=== PATIENT | male | born 1955 | race Caucasian/White ===

== ENCOUNTER 2023-01-18 01:45 | Day surgery (SDC) | payer MEDICARE, SELFPAY ==
[2023-01-15 15:34] VITALS: BMI 32.8
[2023-01-18 07:17] VITALS: BP 118/79; PULSE 65; RESP 14; TEMP 36.3; O2SAT 95; BMI 27.1
[2023-01-18 07:25] LABS: Basophils Percent Auto 0.7 % (0.2-1.2); Eosinophils Absolute Auto 0.3 K/mm3 (0-0.3); Eosinophils Percent Auto 5.4 % (0-4.4); Hematocrit 38.5 % (42.0-52.0); Hemoglobin 12.5 g/dL (14.0-18.0); Immature Granulocyte Absolute 0.01 K/mm3 (0.00-0.031); Immature Granulocyte Percent A 0.2 % (0-0.5); Lymphocytes Percent Auto 25.4 % (18.3-44.2); Mean Corpuscular HGB Conc 32.5 g/dl (32-36); Mean Corpuscular Hemoglobin 31.5 pg (26-34); Mean Platelet Volume 10.7 fl (7.4-10.4); Monocytes Absolute Auto 0.7 K/mm3 (0.1-0.6); Monocytes Percent Auto 11.8 % (2.6-8.5); Neutrophils Absolute Auto 3.1 K/mm3 (1.3-6.7); Neutrophils Percent Auto 56.5 % (45.5-73.1); Platelet Count Result 230 k/mm3 (150-375); Red Blood Count 3.97 M/mm3 (4.6-6.20); Red Cell Distribution Width 12.6 % (11.5-14.5); White Blood Count 5.5 K/mm3 (4.5-10.0)
[2023-01-18 07:39] LABS: Anion Gap 7 mmol/L (8-16); Blood Urea Nitrogen 19 mg/dL (9-20); Calcium 8.5 mg/dL (8.4-10.2); Carbon Dioxide 26 mmol/L (22-30); Chloride 108 mmol/L (98-107); Estimated CRCL calculation 56 ml/min; Estimated Glomerular Filt Rate > 60; Glucose 160 mg/dL (65-110); Potassium 4.3 mmol/L (3.4-5.0); Prothrombin Time 13.4 Seconds (11.1-14.7); Sodium 141 mmol/L (137-145)
--- NOTE | 2023-01-18 08:32 | PM.IMHP ---
H&P: HPI History of Present Illness Date/Time: 01/18/23 08:32 Chief Complaint: Elective pacemaker generator change Narrative: this is a 67-year-old man with a chronically implanted pacemaker to treat the sick sinus syndrome. Patient on routine office follow-up was found to be at [facility]. His initial device was implanted back in the year 1999 and he has been doing well since then. He did undergo a routine generator change for this in April of 2010. He has a dual-chamber Medtronic device which on routine office follow-up has been noted to be at [facility] and he was scheduled for elective generator change with this morning. Patient has no other physical complaints he is not not experiencing any chest pain shortness of breath orthopnea PND edema palpitations or syncope. According to the notes in the record the leads are functioning well. Review of Systems Constitutional: Constitutional: Reports no additional constitutional complaints Eyes: Eyes: Reports no additional eye complaints ENT: Reports system reviewed and no additional complaints, except as documented Cardiovascular: Cardiovascular: Reports no additional cardiovascular complaints Respiratory: Respiratory: Reports no additional respiratory complaints Gastrointestinal: Gastrointestinal: Reports no additional gastrointestinal complaints Musculoskeletal: Musculoskeletal: Reports no additional musculoskeletal complaints Integumentary/Breasts: Skin/Breast: Reports system reviewed and no additional complaints, except as docu Neurologic: Reports system reviewed and no additional complaints, except as documented PMFSH Social History Social History Smoking status: Never smoker Second hand tobacco smoke exposure: Yes Alcohol intake: current Drinks per week: 2 Substance use: never Substance use type: does not use Living arrangements: with family Spiritual care concerns: No Meds Home Medications and Allergies Home Medications Medication Instructions Recorded Confirmed Type amlodipine 2.5 mg tablet 2.5 mg PO DAILY 01/15/23 01/15/23 History atorvastatin 20 mg tablet 20 mg PO DAILY 01/15/23 01/15/23 History gemfibrozil 600 mg tablet 600 mg PO DAILY 01/15/23 01/15/23 History glipizide 10 mg tablet, extended 10 mg PO DAILY 01/15/23 01/15/23 History release 24 hr insulin glargine-yfgn 100 unit/mL 20 unit subcut DAILY 01/15/23 01/15/23 History (3 mL) subcutaneous pen (Semglee (insulin glargine-yfgn) Pen) losartan 100 mg tablet 100 mg PO DAILY 01/15/23 01/15/23 History metformin 500 mg tablet,extended 2,000 mg PO QPM 01/15/23 01/15/23 History release 24 hr metoprolol succinate 100 mg 50 mg PO DAILY 01/15/23 01/15/23 History tablet,extended release 24 hr pantoprazole 40 mg tablet,delayed 40 mg PO PRN PRN Acid Reflux 01/15/23 01/15/23 History release semaglutide 1 mg/dose (4 mg/3 mL) 1 mg subcut WEEKLY 01/15/23 01/15/23 History subcutaneous pen injector (Ozempic) tamsulosin 0.4 mg capsule 0.4 mg PO HS 01/15/23 01/15/23 History Allergies Allergy/AdvReac Type Severity Reaction Status Date / Time No Known Allergies Allergy Unknown Verified 01/18/23 07:15 Vital Signs Vital Signs - 24 hr 01/18/23 07:17 Temperature 36.3 C L Pulse Rate 65 Respiratory Rate 14 Blood Pressure 118/79 Pulse Oximetry 95 Oxygen Delivery Room Air Exam Const: General: comfortable and no acute distress Other: Well-developed well-nourished white male no apparent distress of any kind HENMT: Mouth: Yes moist mucous membranes Eyes: Sclera: sclerae normal Pupils: Equal, round and reactive pupils present Neck: Neck: supple and no JVD Other: carotid impulses normal bilaterally no bruits are audible Resp: Effort & Inspection: normal respiratory effort Auscultation: clear to auscultation bilaterally Cardio: Rate: regular rate Rhythm: regular rhythm GI: GI Palp: Yes Soft to palpation Auscultation: normal bowel sounds Skin
--- NOTE | 2023-01-18 08:37 | WPDMODSED ---
Moderate Sedation Note-Pt Data Patient Data Diagnosis: pacemaker at [facility] Present Complaint: no complaints Procedure to be performed/Plan: pacemaker generator change Allergies Allergy/AdvReac Type Severity Reaction Status Date / Time No Known Allergies Allergy Unknown Verified 01/18/23 07:15 Home Medications Medication Instructions Recorded Confirmed Type amlodipine 2.5 mg tablet 2.5 mg PO DAILY 01/15/23 01/15/23 History atorvastatin 20 mg tablet 20 mg PO DAILY 01/15/23 01/15/23 History gemfibrozil 600 mg tablet 600 mg PO DAILY 01/15/23 01/15/23 History glipizide 10 mg tablet, extended 10 mg PO DAILY 01/15/23 01/15/23 History release 24 hr insulin glargine-yfgn 100 unit/mL 20 unit subcut DAILY 01/15/23 01/18/23 History (3 mL) subcutaneous pen (Semglee (insulin glargine-yfgn) Pen) losartan 100 mg tablet 100 mg PO DAILY 01/15/23 01/15/23 History metformin 500 mg tablet,extended 2,000 mg PO QPM 01/15/23 01/15/23 History release 24 hr metoprolol succinate 100 mg 50 mg PO DAILY 01/15/23 01/15/23 History tablet,extended release 24 hr pantoprazole 40 mg tablet,delayed 40 mg PO PRN PRN Acid Reflux 01/15/23 01/18/23 History release semaglutide 1 mg/dose (4 mg/3 mL) 1 mg subcut WEEKLY 01/15/23 01/15/23 History subcutaneous pen injector (Ozempic) tamsulosin 0.4 mg capsule 0.4 mg PO HS 01/15/23 01/15/23 History Sedation/Anesthesia: No previous sedation/anesthesia problems (including family history). [facility] [place] Social History Social History Smoking status: Never smoker Second hand tobacco smoke exposure: Yes Alcohol intake: current Drinks per week: 2 Substance use: never Substance use type: does not use Living arrangements: with family Spiritual care concerns: No Mod Sed Physical Exam Physical Exam Pre Procedural Exam: Normal: Appearance, Nose, Neck, Throat, Airway, Lungs, Heart Size ( previous pacemaker incisions in left anterior chest wall look unremarkable), Heart Rate, Heart Rhythm, Neuro Exam and Extremities Hours since solid foods: 12 Hours since liquid intake: 12 Mallampati Classification: class II Internal Medicine - PN: Obj Da Vital Signs Vital Signs: Vital Signs - 24 hr 01/18/23 07:17 Temperature 36.3 C L Pulse Rate 65 Respiratory Rate 14 Blood Pressure 118/79 Pulse Oximetry 95 Oxygen Delivery Room Air Labs 01/18/23 07:16 01/18/23 07:16 Labs: Laboratory Results - last 24 hr 01/18/23 07:16 WBC 5.5 RBC 3.97 L Hgb 12.5 L Hct 38.5 L MCV 97.0 MCH 31.5 MCHC 32.5 RDW 12.6 Plt Count 230 MPV 10.7 H Immature Gran % (Auto) 0.2 Neut % (Auto) 56.5 Lymph % (Auto) 25.4 Frederick % (Auto) 11.8 H Eos % (Auto) 5.4 H Baso % (Auto) 0.7 Lymph # (Auto) 1.40 Frederick # (Auto) 0.7 H Eos # (Auto) 0.3 Baso # (Auto) 0.0 Abs Immat Gran (auto) 0.01 Absolute Neuts (auto) 3.1 Absolute Nucleated RBC 0.0 Nucleated RBC % 0.0 PT 13.4 INR 1.0 Sodium 141 Potassium 4.3 Chloride 108 H Carbon Dioxide 26 Anion Gap 7 L BUN 19 Creatinine 1.00 Estim Creat Clear Calc 56 Estimated GFR > 60 Glucose 160 H Calcium 8.5 ASA Classification/Sedation ASA Classification/Sedation ASA Class: II Emergent: No Risks: Risks, benefits and alternatives explained and patient/family accepted plan for sedation. Patient re-evaluated immediately prior to sedation.
--- NOTE | 2023-01-18 10:08 | WPDCARDPROC ---
Cardiac Cath Procedure Note Date of procedure:: 01/18/23 Performing physician:: Omari Plummer MD Indication:: Permanent pacemaker at [facility] Brief clinical history:: this is a 67-year-old man who has a chronically implanted dual-chamber pacemaker for treatment of sick sinus syndrome. The device is functioning normally but at [facility] and patient is admitted as outpatient today for elective generator change. The original implant was done in 1999 this will be the patient's 3rd generator in this pocket. Procedure Procedure performed:: Explanted depleted dual-chamber pulse generator implanted new dual-chamber pulse generator Sedation/Medication given:: fentanyl 50 mg Versed 2 mg Access site:: left anterior chest wall pocket Estimated blood loss:: minimal Procedure note:: patient was brought to the cardiac catheterization lab in the postabsorptive state where the left anterior chest wall was prepped and draped in usual sterile fashion. The chronically implanted pocket was identified in the left anterior chest wall. 1% lidocaine was infiltrated over the palpable generator site and the pocket was then opened using the plasma blade. The PlasmaBlade was used to create the incision to provide cutaneous hemostasis and to open the fibrous capsule. There was a large amount of trough fibrous capsule that had to be opened and there was significant scar tissue/ fibrosis attached to the leads right up to the header of the generator device. Extreme care was made to dissect this free from the leads without harming the lead insulation and without losing control of the lead so it would not retract underneath the fibrous capsule. Once this was accomplished the leads were disconnected from the generator using the torque wrench and connected to the new generator using the same torque wrench. The pocket was then irrigated using Ancef infused saline and the entire assembly was placed back into the pocket. This was then closed in layers using 3-0 Vicryl in interrupted fashion for the subcutaneous tissue and 4-0 Vicryl in a running subcuticular fashion for the skin. The area was cleansed and dressed with an Aquacel dressing. Postop antibiotics will be ordered. Patient tolerated procedure well there were no apparent complications Findings:: the explanted device is a Medtronic dual-chamber pacemaker model ADD R01 serial number [id number]. originally implanted 05/12/2010. The new generator is a Medtronic dual-chamber pacemaker model W1DR01, serial number [id number]. the atrial lead is the chronically implanted dual-chamber bipolar lead model 5592-45 serial number [id number]. P waves are sensed at 1.8 mV impedance 437 Ohms threshold 0.75 volts at 0.4 millisecond. The ventricular lead is the chronically implanted dual-chamber bipolar lead [id number], serial number [id number]. R-waves are sensed at 6.1 mV impedance 418 Ohms threshold 1.0 volt at 0.4 millisecond. Conclusion:: 1. Successful uncomplicated explantation of permanent dual-chamber pacemaker generator at [facility] 2. successful uncomplicated implantation of new dual-chamber pulse generator for ongoing treatment of sick sinus syndrome in this 67-year-old man 3. chronically implanted leads were used and are functioning well. A significant amount of fibrous scar tissue had to be dissected around the leads as described above. Omari Plummer MD [facility]
[2023-01-18 10:15] VITALS: BP 104/70; PULSE 62; RESP 14; O2SAT 96
[2023-01-18 10:30] VITALS: BP 125/64; PULSE 61; RESP 16; O2SAT 96
[2023-01-18 10:45] VITALS: BP 110/82; PULSE 65; RESP 16; O2SAT 97
[2023-01-18 11:00] VITALS: BP 128/68; PULSE 60; RESP 14; O2SAT 97
[2023-01-18 11:15] VITALS: BP 122/68; PULSE 65; RESP 14; O2SAT 98
== END 2023-01-18 11:20 | disposition home or self-care (01) ==
PROVIDERS: Visit Provider Specialist
PROC: 0JPT0PZ Removal of Cardiac Rhythm Related Device from Trunk Subcutaneous Tissue and Fascia, Open Approach (ICD-10-PCS; CPT 33228; principal; 2023-01-18 08:30)
DX: Z45.010 Encounter for checking and testing of cardiac pacemaker pulse generator [battery] (principal); Z79.84 Long term (current) use of oral hypoglycemic drugs; Z79.4 Long term (current) use of insulin; Z79.899 Other long term (current) drug therapy
CPT/HCPCS: 33228; 36415; 80048; 85025; 85610; C1785; J0690; J2250; J3010; J7040